=== PATIENT | male | born 1975 | race Caucasian/White ===

== ENCOUNTER 2017-01-03 20:15 | Emergency (ER) | payer BC ==
[2017-01-03 20:26] VITALS: BP 147/86; PULSE 66; RESP 20; TEMP 97.6
[2017-01-03] MEDS ORDERED: HYDROcodone/APAP 10-325MG 1 EACH TAB PO ONE (20:46)
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
== END 2017-01-03 21:11 | disposition home or self-care (01) ==
LOC: EC 20:15
DX: T23.252A Burn of second degree of left palm, initial encounter (principal); T23.232A Burn of second degree of multiple left fingers (nail), not including thumb, initial encounter; X17.XXXA Contact with hot engines, machinery and tools, initial encounter; Z79.899 Other long term (current) drug therapy; G40.909 Epilepsy, unspecified, not intractable, without status epilepticus
CPT/HCPCS: 16020; 99283

== ENCOUNTER 2023-10-29 19:28 | Emergency (ER) | payer OTHER, BC ==
--- NOTE | 2023-10-29 19:37 | ED ---
General Adult HPI - General Source: patient Mode of arrival: wheelchair Limitations: no limitations <Taylor Martinez - Last Filed: 10/29/23 19:35> - General Source: patient, RN notes reviewed Mode of arrival: wheelchair Limitations: no limitations <Merry Portillo - Last Filed: 10/30/23 05:06> - General Chief complaint: Dizziness Stated complaint: Dizziness Weakness Time Seen by Provider: 10/29/23 19:35 - History of Present Illness Initial comments: 48-year-old male presenting with chief complaint of dizziness. This is been ongoing for a few days. He also states that today his legs were feeling weak. (Taylor Martinez) This is a 48-year-old male who presents to the emergency department for dizziness. States that over the last few days whenever he wakes up in the m orning he starts to feel dizzy. This is worse when he changes positions or turns his head. It is also prominent when he stands up too quickly. The dizziness then subsides throughout the day. Unsure if he would describe this as a room spinning sensation. He does report episodes of ringing in his ears, but denies any ear pain. Denies any known history of vertigo. Additionally, he started to experience leg pain and weakness after work today. His states that when he got home both of his legs were very swollen, which was unusual. That has since resolved and his legs are no longer painful or swollen. Given the combination of symptoms with dizziness and leg pain, he decided to come to the emergency department for evaluation. He is concerned because he has a family history of heart attacks and strokes. Denies any chest pain or shortness of breath. (Merry Portillo) - Related Data Home Medications Medication Instructions Recorded Confirmed carBAMazepine [TEGretol] 1,000 mg PO DAILY 01/03/17 01/03/17 Previous Rx's Medication Instructions Recorded HYDROcodone/APAP 10-325MG [[facility] 1 tab PO Q6H PRN #15 tab 01/03/17 10-325] Meclizine [Antivert] 25 mg PO Q6H PRN #15 tab 10/30/23 Allergies Allergy/AdvReac Type Severity Reaction Status Date / Time codeine AdvReac Vomiting Verified 10/29/23 19:37 Review of Systems ROS Other: All systems not noted in ROS Statement are negative. <Taylor Martinez - Last Filed: 10/29/23 19:35> ROS Other: All systems not noted in ROS Statement are negative. <Merry Portillo - Last Filed: 10/30/23 05:06> ROS Statement: Those systems with pertinent positive or pertinent negative responses have been documented in the HPI. Past Medical History Past Medical History: Seizure Disorder History of Any Multi-Drug Resistant Organisms: None Reported Past Surgical History: Orthopedic Surgery Past Psychological History: No Psychological Hx Reported Past Alcohol Use History: None Reported Past Drug Use History: None Reported <Taylor Martinez - Last Filed: 10/29/23 19:35> General Exam <Taylor Martinez - Last Filed: 10/29/23 19:35> Limitations: no limitations General appearance: alert, in no apparent distress Head exam: Present: atraumatic, normocephalic, normal inspection Eye exam: Present: normal appearance, PERRL, EOMI. Absent: scleral icterus, conjunctival injection, periorbital swelling ENT exam: Present: normal exam, mucous membranes moist, TM's normal bilaterally, normal external ear exam Respiratory exam: Present: normal lung sounds bilaterally. Absent: respiratory distress, wheezes, rales, rhonchi, stridor Cardiovascular Exam: Present: regular rate, normal rhythm, normal heart sounds. Absent: systolic murmur, diastolic murmur, rubs, gallop, clicks Extremities exam: Present: normal inspection, full ROM, normal capillary refill. Absent: tenderness, pedal edema, joint swelling, calf tenderness Neurological exam: Present: alert, oriented X3, CN II-XII intact Psychiatric exam: Present: normal affect, normal mood Skin exam: Present: warm, dry, intact, normal color. Absent: rash <Merry Portillo - Last Filed: 10/30/23 05:06> - General Exam Comments Initial Comments: Visual Physical Exam Vital signs reviewed General: Well-appearing, nontoxic, no acute distress. Head: Normocephalic, atraumatic Eyes: PERRLA, EOMI ENT: Airway patent Chest: Nonlabored breathing Skin: No visual rash, normal skin tone Neuro: Alert and oriented 3 Musculoskeletal: No gross abnormalities (Taylor Martinez) Course Vital Signs 10/29/23 10/30/23 10/30/23 19:34 02:07 03:09 Temperature 98 F Pulse Rate 75 63 64 Respiratory 18 16 16 Rate Blood Pressure 124/78 123/90 118/79 O2 Sat by Pulse 97 98 95 Oximetry 10/30/23 04:00 Temperature Pulse Rate 61 Respiratory 16 Rate Blood Pressure 122/83 O2 Sat by Pulse 96 Oximetry Medical Decision Making <Taylor Martinez - Last Filed: 10/29/23 19:35> - Lab Data Result diagrams: 10/29/23 20:10 10/29/23 20:10 - Radiology Data Radiology results: report reviewed, image reviewed <Merry Portillo - Last Filed: 10/30/23 05:06> - Medical Decision Making I performed the quick note portion of this visit, electronically signed Taylor Martinez PA-C (Taylor Martinez) This is a 48-year-old male who presents to the emergency department for dizziness and leg pain. Was pt. sent in by a medical professional or institution? @ -No Did you speak to anyone other than the patient for history? @ -No Did you review nursing and triage notes? @ -Yes, and I agree, it is accurate with regards to the patient's symptoms. Were old charts reviewed? @ -No Differential Diagnosis? @ -Differential Dizziness: Benign paroxysmal positional Vertigo, Menieres disease, otitis media, acoustic neuroma, vertebrobasilar insufficiency, cerebellar stroke, encephalitis, hypovolemic, arrhythmia, coronary artery syndrome, anemia, this is not meant to be an all-inclusive list EKG interpreted by me (3pts min.)? @ -EKG interpreted by me demonstrating the following: Sinus rhythm. Ventricular rate 67 bpm, OR interval 143 ms, QRS duration 112 ms, QTC 381. X-rays interpreted by me (1pt min.)? @ -Chest x-ray obtained, my interpretation identifies no localized consolidations or infiltrates. CT interpreted by me (1pt min.)? @ -Computed tomography scan of the brain obtained. My interpretation identifies no evidence of an acute intracranial hemorrhage. U/S interpreted by me (1pt. min.)? @ -Not obtained What testing was considered but not performed? (CT, X-rays, U/S, labs)? Why? @ -None What meds were considered but not given? Why? @ -None Did you discuss the management of the patient with other professionals? @ -No Did you reconcile home meds? @ -No Was smoking cessation discussed for >3mins.? @ -No Was critical care preformed (if so, how long)? @ -No Were there social determinants of health that impacted care today? How? (Homelessness, low income, unemployed, alcoholism, drug addiction, trans portation, low edu. Level, literacy, decrease access to med. care, skilled nursing, rehab)? @ -No Was there de-escalation of care discussed even if they declined? (Discuss DNR or withdrawal of care, Hospice)? @ -No What co-morbidities impacted this encounter? (DM, HTN, Smoking, COPD, CAD, Cancer, CVA, Hep., AIDS, mental health diagnosis, sleep apnea, morbid obesity)? @ -None Was patient admitted / discharged? @ -Discharged. Lab work obtained and found to be unremarkable. Covid, influenza, and RSV testing were negative. Chest x-ray reveals no acute process. Computed tomography scan of the brain obtained also revealing no acute findings. Patient remained asymptomatic while in the emergency department with regards to both the dizziness and leg pain. Physical examination was also entirely unremarkable. Discussed that the dizziness may be related to vertigo based on the positional changes. He was given a prescription for meclizine to use if the dizziness recurs to see if that offers any benefit. Advised ibuprofen and Tylenol as needed for any additional leg pain. Patient otherwise discharged home in stable condition and advised to have close follow-up with his primary care provider. Undiagnosed new problem with uncertain prognosis? @ -None Drug Therapy requiring intensive monitoring for toxicity (Heparin, Nitro, Insulin, Cardizem)? @ -None Were any procedures done? @ -None Diagnosis/symptom? @ -Dizziness, leg pain Acute, or Chronic, or Acute on Chronic? @ -Acute Uncomplicated (without systemic symptoms) or Complicated (systemic symptoms)? @ -Uncomplicated Side effects of treatment? @ -None Exacerbation, Progression, or Severe Exacerbation] @ -Not applicable Poses a threat to life or bodily function? @ -No Return precautions reviewed in depth, the patient is instructed to return to the emergency department with any new, worsening, or concerning symptoms. Patient verbalized understanding. This case was discussed in detail with the attending ED physician, Dr. Lucas. Presentation, findings, and treatment plan discussed in detail as well. (Merry Portillo) - Lab Data Lab Results 10/29/23 10/29/23 10/29/23 Range/Units 20:10 20:10 20:10 WBC 8.1 (3.8-10.6) k/uL RBC 5.11 (4.30-5.90) m/uL Hgb 15.2 (13.0-17.5) gm/dL Hct 46.1 (39.0-53.0) % MCV 90.2 (80.0-100.0) fL MCH 29.7 (25.0-35.0) pg MCHC 32.9 (31.0-37.0) g/dL RDW 13.2 (11.5-15.5) % Plt Count 262 (150-450) k/uL MPV 8.0 Neutrophils % 62 % Lymphocytes % 27 % Monocytes % 7 % Eosinophils % 2 % Basophils % 1 % Neutrophils # 5.0 (1.3-7.7) k/uL Lymphocytes # 2.2 (1.0-4.8) k/uL Monocytes # 0.6 (0-1.0) k/uL Eosinophils # 0.1 (0-0.7) k/uL Basophils # 0.0 (0-0.2) k/uL Sodium 141 (137-145) mmol/L Potassium 3.9 (3.5-5.1) mmol/L Chloride 104 (98-107) mmol/L Carbon Dioxide 28 (22-30) mmol/L Anion Gap 9 mmol/L BUN 17 (9-20) mg/dL Creatinine 0.73 (0.66-1.25) mg/dL Est GFR (CKD-EPI)AfAm >90 (>60 ml/min/1.73 sqM) Est GFR (CKD-EPI)NonAf >90 (>60 ml/min/1.73 sqM) Glucose 100 H (74-99) mg/dL Plasma Lactic Acid Alex 1.0 (0.7-2.0) mmol/L Calcium 9.3 (8.4-10.2) mg/dL Total Bilirubin 0.5 (0.2-1.3) mg/dL AST 28 (17-59) U/L ALT 32 (4-49) U/L Alkaline Phosphatase 78 (38-126) U/L Troponin I (0.000-0.034) ng/mL Total Protein 6.9 (6.3-8.2) g/dL Albumin 4.2 (3.5-5.0) g/dL Influenza Type A (PCR) (Not Detectd) Influenza Type B (PCR) (Not Detectd) RSV (PCR) (Not Detectd) SARS-CoV-2 (PCR) (Not Detectd) 10/29/23 10/29/23 Range/Units 20:10 20:10 WBC (3.8-10.6) k/uL RBC (4.30-5.90) m/uL Hgb (13.0-17.5) gm/dL Hct (39.0-53.0) % MCV (80.0-100.0) fL MCH (25.0-35.0) pg MCHC (31.0-37.0) g/dL RDW (11.5-15.5) % Plt Count (150-450) k/uL MPV Neutrophils % % Lymphocytes % % Monocytes % % Eosinophils % % Basophils % % Neutrophils # (1.3-7.7) k/uL Lymphocytes # (1.0-4.8) k/uL Monocytes # (0-1.0) k/uL Eosinophils # (0-0.7) k/uL Basophils # (0-0.2) k/uL Sodium (137-145) mmol/L Potassium (3.5-5.1) mmol/L Chloride (98-107) mmol/L Carbon Dioxide (22-30) mmol/L Anion Gap mmol/L BUN (9-20) mg/dL Creatinine (0.66-1.25) mg/dL Est GFR (CKD-EPI)AfAm (>60 ml/min/1.73 sqM) Est GFR (CKD-EPI)NonAf (>60 ml/min/1.73 sqM) Glucose (74-99) mg/dL Plasma Lactic Acid Alex (0.7-2.0) mmol/L Calcium (8.4-10.2) mg/dL Total Bilirubin (0.2-1.3) mg/dL AST (17-59) U/L ALT (4-49) U/L Alkaline Phosphatase (38-126) U/L Troponin I <0.012 (0.000-0.034) ng/mL Total Protein (6.3-8.2) g/dL Albumin (3.5-5.0) g/dL Influenza Type A (PCR) Not Detected (Not Detectd) Influenza Type B (PCR) Not Detected (Not Detectd) RSV (PCR) Not Detected (Not Detectd) SARS-CoV-2 (PCR) Not Detected (Not Detectd) Disposition <Taylor Martinez - Last Filed: 10/29/23 19:35> Is patient prescribed a controlled substance at d/c from ED?: No <Merry Portillo - Last Filed: 10/30/23 05:06> Clinical Impression: Dizziness, Leg pain Disposition: HOME SELF-CARE Instructions (If sedation given, give patient instructions): Vertigo (ED), Dizziness (ED) Additional Instructions: Return to the emergency department with any new, worsening, or concerning symptoms. If the dizziness returns, you can try taking one of the meclizine tablets prescribed. Try to move around and stand up slowly to reduce the severity of symptoms. You can alternate with ibuprofen and Tylenol as needed for pain relief if your legs start to hurt again as well. Follow up with your primary care provider in 1-2 days. Prescriptions: Meclizine [Antivert] 25 mg PO Q6H PRN #15 tab PRN Reason: Vertigo Referrals: Rudi Bhardwaj MD [Primary Care Provider] - 1-2 days
[2023-10-29 19:51] VITALS: TEMP 98
--- NOTE | 2023-10-29 20:30 | XR ---
EXAMINATION TYPE: XR chest 2V DATE OF EXAM: 10/29/2023 8:16 PM CLINICAL INDICATION:Male, 48 years old with history of dizziness; COMPARISON: Chest radiographs from 10/29/2023 TECHNIQUE: XR chest 2V Frontal and lateral views of the chest. FINDINGS: Lungs/Pleura: Prominent interstitial lung markings are seen scattered throughout the lungs. No eviden ce of focal consolidation, pneumothorax or pleural effusion. Pulmonary vascularity: Unremarkable. Heart/mediastinum: Cardiomediastinal silhouette is unremarkable. Musculoskeletal: No acute osseous pathology. Other findings: None IMPRESSION: Chronic changes without acute pulmonary process. No significant change from prior.
[2023-10-29 20:31] LABS: Basophils % (A) 1 %; Eosinophils # (A) 0.1 k/uL (0-0.7); Eosinophils % (A) 2 %; HCT 46.1 % (39.0-53.0); HGB 15.2 gm/dL (13.0-17.5); Lymphocytes # (A) 2.2 k/uL (1.0-4.8); Lymphocytes % (A) 27 %; MCH 29.7 pg (25.0-35.0); MCHC 32.9 g/dL (31.0-37.0); MCV 90.2 fL (80.0-100.0); Monocytes # (A) 0.6 k/uL (0-1.0); Monocytes % (A) 7 %; Neutrophils % (A) 62 %; Platelet Count 262 k/uL (150-450); RBC 5.11 m/uL (4.30-5.90); RDW 13.2 % (11.5-15.5); WBC 8.1 k/uL (3.8-10.6)
[2023-10-29 20:38] LABS: ALT 32 U/L (4-49); AST 28 U/L (17-59); African American GFR (CKD) >90 (>60 ml/min/1.73 sqM); Albumin 4.2 g/dL (3.5-5.0); Alkaline Phosphatase 78 U/L (38-126); Anion Gap 9 mmol/L; Blood Urea Nitrogen 17 mg/dL (9-20); Calcium 9.3 mg/dL (8.4-10.2); Carbon Dioxide 28 mmol/L (22-30); Chloride 104 mmol/L (98-107); Glucose 100 mg/dL (74-99); Non-African American GFR(CKD) >90 (>60 ml/min/1.73 sqM); Potassium 3.9 mmol/L (3.5-5.1); Sodium 141 mmol/L (137-145); Total Bilirubin 0.5 mg/dL (0.2-1.3); Total Protein 6.9 g/dL (6.3-8.2)
[2023-10-30 02:15] VITALS: RESP 16
--- NOTE | 2023-10-30 02:27 | CT ---
EXAM: CT Head Without Intravenous Contrast CLINICAL HISTORY: ITS.REASON CT Reason: Dizziness TECHNIQUE: Axial computed tomography images of the head/brain without intravenous contrast. CTDI is 49.2 mGy and DLP is 1167.4 mGy-cm. This CT exam was performed using one or more of the following dose reduction techniques: automated exposure control, adjustment of the mA and/or kV according to patient size, and/or use of iterative reconstruction technique. COMPARISON: No relevant prior studies available. FINDINGS: Brain: No hemorrhage or mass effect. Ventricles: No hydrocephalus. Bones/joints: Prior right facial reconstruction. Soft tissues: Unremarkable. Sinuses: No air fluid level. Mastoid air cells: Clear. IMPRESSION: No acute hemorrhage, hydrocephalus, or mass effect.
[2023-10-30 04:05] VITALS: BP 122/83; PULSE 61
== END 2023-10-30 04:15 | disposition home or self-care (01) ==
LOC: EC 19:28
DX: R42 Dizziness and giddiness (principal); M79.604 Pain in right leg; M79.605 Pain in left leg; G40.909 Epilepsy, unspecified, not intractable, without status epilepticus; Z20.822 Contact with and (suspected) exposure to COVID-19; Z88.5 Allergy status to narcotic agent; Z79.899 Other long term (current) drug therapy
CPT/HCPCS: 36415; 70450; 71046; 80053; 83605; 84484; 85025; 87636; 93005; 99284